=== PATIENT | male | born 1955 | race Caucasian/White ===

== ENCOUNTER 2024-05-22 09:25 | Outpatient (CLI) | payer MEDICARE, OTHER, SELFPAY ==
--- NOTE | 2024-05-22 11:02 | ECG_ITS ---
Test Date: 2024-05-22 11:12:43 Measurements Intervals [place] Rate: 61 P: 32 IA: 188 QRS: 60 QRSD: 88 T: 56 QT: 405 QTc: 410 Interpretive Statements SINUS RHYTHM INCOMPLETE RIGHT BUNDLE BRANCH BLOCK BASELINE ARTIFACT- I, II, III, AVR, AVL, AVF, V3 BORDERLINE ECG No previous ECG available for comparison Electronically Signed On 05-22-2024 12:04:28 CDT by Bruce Siu D.O.
[2024-05-22 11:47] LABS: INR 0.9; Prothrombin Time 12.5 Seconds (11.1-14.7)
[2024-05-22 11:48] LABS: Partial Thromboplastin Time 31.5 Seconds (22.3-36.8)
[2024-05-22 12:04] LABS: Anion Gap 12 mmol/L (4-12); Blood Urea Nitrogen 30 mg/dL (9-20); Calcium 9.5 mg/dL (8.4-10.2); Carbon Dioxide 26 mmol/L (22-30); Chloride 101 mmol/L (98-107); Estimated Glomerular Filt Rate > 60; Glucose 108 mg/dL (65-110); Potassium 4.6 mmol/L (3.4-5.0); Sodium 139 mmol/L (137-145)
[2024-05-22 12:45] LABS: Hemoglobin A1C 5.6 % (<5.7)
== END 2024-05-22 09:26 | disposition home or self-care (01) ==
PROVIDERS: Anesthesiology; Visit Provider Urology
DX: E78.00 Pure hypercholesterolemia, unspecified (principal); N52.9 Male erectile dysfunction, unspecified; E11.9 Type 2 diabetes mellitus without complications; N18.9 Chronic kidney disease, unspecified; Z01.818 Encounter for other preprocedural examination
CPT/HCPCS: 36415; 80048; 83036; 85610; 85730; 87086; 93005

== ENCOUNTER 2024-06-13 01:55 | Day surgery (SDC) | payer MEDICARE, OTHER, SELFPAY ==
[2024-05-22 10:24] VITALS: BP 107/63; PULSE 61; RESP 16; TEMP 36.2; O2SAT 100; BMI 22.0
--- NOTE | 2024-05-22 10:43 | PC.NURSE ---
Report to the Outpatient Waiting Room, entrance under the green pavilion located off [facility], at time _9:30AM__ on date _06/13/24__. Planned Procedure Time: _11:30AM .? Time changes happen often and if your time is changed the preop area will call you the afternoon before. - You and your visitor will be asked to self-screen and do not enter if you have any COVID symptoms. Please call surgeon if you need to reschedule. - A mask is optional within the hospital at this time. Patients may have clear liquids (water, carbonated beverages, clear teas, apple juice) until 3 hours prior to surgery with a maximum of 20 ounces. - No food from midnight until time of surgery and no smoking. Take only the following medications with a SIP of water on the morning of surgery: ___PREGABALIN & TRESIBA 5 UNITS. MAY USE ALBUTEROL INHALER NEEDED. DO NOT STOP ANY OF YOUR OTHER PRESCRIPTION MEDICATIONS PRIOR TO SURGERY EXCEPT THE FOLLOWING Medications to discontinue per physician __HOLD ALL VITAMINS/SUPPLEMENTS 3 DAYS PRE-OP PER ANESTHESIA Date to take last dose 06/09/24 Please no make-up, nail danish, hairspray, perfume, deodorant, or body powder the day of surgery.? No jewelry (including any body piercings) or valuables the day of surgery, leave them at home.? Please take a shower or bath the night before, or the morning of, surgery with an antibacterial soap.? Wear comfortable, loose fitting clothing.? - Jewelry must be removed prior to entering the operating room.? Rings and piercings that are not removed may be cut off. - The hospital will not accept responsibility for valuables.? - Please leave all valuables, including medications, at home the day of surgery. If you are going home after surgery, a licensed parts driver must drive you home.? - NO public transportation without another adult if you receive anesthesia. - We recommend that an adult stay with you for 24 hours following discharge. - We also recommend that you do not drive, make important decision, drink alcoholic beverages, or take any drugs that were not prescribed by your health care provider for at least 24 hours after your discharge time. Follow any additional instructions given to you from your surgeon. Telephone instructions given to ____PATIENT and asked if any additional questions and then verbalized understanding. Patient advised to call surgeon office or pre surgery nurse liaison [phone] if any additional questions.
[2024-06-13] VITALS (9 sets, daily range): BP systolic 110–157; BP diastolic 59–81; PULSE 65–92; RESP 10–20; TEMP 36.1–37.3; O2SAT 94–100; BMI 22.0
[2024-06-13 09:35] LABS: Glucose Point of Care 84 mg/dl (65-105)
[2024-06-13] MEDS: GENTAMICIN SULFATE INJ 370 MG in DEXTROSE 5% 100 ML 100 MG IVPB (10:00)
[2024-06-13] MEDS: VANCOMYCIN 1,250 MG/NS 250 ML BAG 166.67 MG IVPB (10:00)
[2024-06-13] MEDS: LACTATED RINGERS 1,000 ML 30 ML IV CONT ×2 (10:00→16:48)
--- NOTE | 2024-06-13 11:31 | WPDANESEPPF ---
Anes - Initial Pre Proc Eval Procedure: Operation Date: 06/13/24 11:30 Proposed Procedures p Insertion Inflatable Penile Prosthesis - Don Miner MD Date/Time: 06/13/24 11:31 Surgeon: Don Miner MD Pre Op Diagnosis: ED Patient Data Age: 69 Gender: M Height: 1.83 m Weight: 73.7 kg Last Vital Signs Temp 97.5 F L 06/13/24 09:20 Pulse 65 06/13/24 09:20 Resp 16 06/13/24 09:20 BP 110/59 L 06/13/24 09:20 Pulse Ox 100 06/13/24 09:20 O2 Del Method Room Air 06/13/24 09:20 Allergies Allergy/AdvReac Type Severity Reaction Status Date / Time No Known Allergies Allergy Verified 06/13/24 09:22 Home Medications Medication Instructions Recorded Confirmed Type albuterol sulfate 90 mcg/actuation 1 puff inhalation Q4-8H PRN 05/22/24 05/22/24 History aerosol inhaler Shortness Of Breath Or Wheezing atorvastatin 10 mg tablet 10 mg PO EVERY OTHER DAY 05/22/24 05/22/24 History dapagliflozin propanediol 5 mg 5 mg PO QAM 05/22/24 05/22/24 History tablet (Farxiga) insulin degludec 200 unit/mL (3 10 unit subcut QAM 05/22/24 05/22/24 History mL) subcutaneous pen (Tresiba FlexTouch U-200 insulin) lactobacillus combination no.8 3 3 cell PO DAILY 05/22/24 05/22/24 History billion cell capsule losartan 25 mg tablet 25 mg PO QAM 05/22/24 05/22/24 History metformin 750 mg tablet,extended 750 mg PO BID 05/22/24 05/22/24 History release 24 hr multivitamin 1 tablet PO DAILY 05/22/24 05/22/24 History pantoprazole 40 mg tablet,delayed 40 mg PO EVERY OTHER DAY 05/22/24 05/22/24 History release patiromer calcium sorbitex 8.4 8.4 g PO DAILY 05/22/24 05/22/24 History gram oral powder packet (Veltassa) pregabalin 150 mg capsule See Rx Instructions .Route .COMPLEX 05/22/24 05/22/24 History tirzepatide 15 mg/0.5 mL 15 mg subcut WEEKLY 05/22/24 05/22/24 History subcutaneous pen injector (Mounjaro) vibegron 75 mg tablet (Gemtesa) 75 mg PO QAM 05/22/24 05/22/24 History levofloxacin 500 mg tablet 500 mg PO DAILY 06/13/24 06/13/24 History Laboratory Tests 06/13/24 09:32 POC Capillary Glucose 84 mg/dl (65-105) Patient hx anesthesia problems: none Family hx anesthesia problems: none Results Review: All pre-operative results and documents have been reviewed as part of the pre-operative evaluation. [facility] Social History Social History Smoking packs per day: 3 Smoking cigarettes per day: 60.0 Years smoked: 26 Smoking pack-years: 78.00 Smoking status: Former smoker Tobacco type: cigarettes Smoking end date: 03/19/01 Alcohol intake: current Alcohol use details: FORMER HEAVY DRINKER, QUIT 2000 Living arrangements: with family Additional living arrangements comments: Spiritual care concerns: No Anes - Eval Final PreProcedure Day of Procedure 06/13/24 11:31 Patient weight: normal Heart: regular rate and rhythm Lungs: clear to auscultation Airway: Mallampati scale class II Neurological: alert and oriented Last oral intake: >/= 8 hours ASA classification: III Emergent: no Anesthetic plan: proceed Anesthesia type and monitoring: general LMA and standard monitoring Results Review: All pre-operative results and documents have been reviewed as part of the pre-operative evaluation. Informed Consent: The patient's anesthetic plan and its attendant risks and benefits were discussed with the patient/family/POA. Questions were solicited and answers provided to the satisfaction of the patient/family/POA.
--- NOTE | 2024-06-13 12:14 | WPDHPUPDATE1 ---
History and Physical Update Update Date/Time: 06/13/24 12:14 History and Physical has been reviewed, including an updated exam of the patient. There are NO changes in the patient's condition. Risks, benefits, and alternatives have been discussed and questions answered. Patient agrees to proceed with procedure.
[2024-06-13] MEDS: BUPivacaine HCL 0.25% PF 30 ML VIAL INFILTRATE (13:40)
[2024-06-13] MEDS: ceFAZolin SODIUM 1 GM VIAL (13:40)
[2024-06-13] MEDS: LIDOCAINE HCL 1% LOCAL INJ 20 ML VIAL INFILTRATE (13:41)
--- NOTE | 2024-06-13 16:46 | W.PM.PROC2 ---
Procedure Note - Detailed Date of Procedure 06/13/24 Pre-op Diagnosis Postprostatectomy erectile dysfunction Post-op Diagnosis Other (Postprostatectomy erectile dysfunction, Peyronie's disease with corporal fibrosis) Procedure Performed 1. Insertion of 3-piece inflatable penile prosthesis. 2. Artificial erection using pharmacological agent. 3. Correction of Peyronie's disease with penile modeling 4. Scrotoplasty Surgeon Don Miner MD Anesthesia General Description of Procedure DESCRIPTION OF OPERATION Informed consent obtained, patient taken to the operating room and given preoperative IV antibiotics with vancomycin and gentamicin. Additionally the patient has been taking oral levofloxacin and done a 3-day wash with Hibiclens. The patient was shaved. He was then prepped with Betadine scrub and paint followed by ChloraPrep. Sterile drapes were placed. We again prepped with ChloraPrep. A 16-[place] Karimi catheter was inserted with return of clear urine. We then performed a pharmacologically induced erection with dilute lidocaine. There was minimal curvature noted. We then made a penoscrotal 3 cm longitudinal incision excising excess skin at the penoscrotal junction. We dissected bluntly down to identify the corporal bodies taking great care not to injure the urethra. Stay sutures of 2-0 PDS were placed in the corporal body. We sharply opened the corpora. We then serially dilated up to a 12 Unger dilator. There was significant corporal fibrosis noted however we were able to dilate with Metzenbaum scissors held to make a nice tract into the mid gland. We then measured the corpora. Measurements were 8 cm proximally and 8 cm distally. We irrigated and there was no injury. We then performed an identical procedure on the contralateral side, again with distal corporal fibrosis. Measurements were 8 cm proximal, 8 cm distal. Dilators were placed into the corpora bilaterally confirming that there was no crossover. We elected to place an AMS LGX device 15 cm + 1cm of rear tip extenders. Despite being able to dilate up to 12, there was significant difficulty in placing the implant into the corpora. We were able to seat the device into the corpora and with inflation noted significant curvature of [id number]? ventrally and 40? to the left. The device was removed dilation was again performed and significant curvature remained. Given the significant fibrosis and smaller corporal bodies, we elected to exchange to a narrow based device. All we therefore removed the device and then replaced an AMS CXR device 14cm +1.5cm rear-tip hr receptionist. This device sat in a much better location. Inflation at this point revealed [id number] dorsal and 30degree left curvature. We then placed rubber shod on the tubing and performed penile modeling. Modeling for 90seconds x 2 allowed for significant improvement of curvature. There did appear to be room to fill the glans, we therefore exchanged to a 2cm rear tip with better positioning. At this point the device sat in a much better location, there was minimal residual curvature with [id number]? of curvature in any direction. We felt this was an excellent cosmetic result given his fibrosis and narrow corpora. We again irrigated the corporal bodies. We then closed the pre-placed 2-0 PDS sutures. We again inflated using the surrogate reservoir again with a very good cosmetic result. Final implant was AMS CXR device 14cm +2cm rear-tip hr receptionist. We then made a right lower quadrant incision for approximately 2 cm. We bluntly dissected down to the external oblique fascia. The fascia was opened. We then the rectus muscle and created a space superiorly in the sub rectus. We emptied the bladder prior to our incision. We then irrigated copiously. We pre-placed 0 Vicryl sutures. We placed the reservoir in the sub rectus space. We fill it with 100 mL and there was no back pressure. We then left 80mL in the reservoir. Our pre-pl
[2024-06-13 16:57] LABS: Glucose Point of Care 84 mg/dl (65-105)
[2024-06-13] MEDS: fentaNYL CITRATE INJ (*CRX) 100 MCG/2 ML VIAL 25 MCG IV PUSH ×2 (17:12→17:15)
--- NOTE | 2024-06-13 18:00 | PC.NURSE ---
This patient, Saul Sosa, was admitted to -. Patient/family oriented to hospital policies and general routines including ID bracelet, bed and alarms, visiting hours, pain management, procedures, bathroom and other care routines, personal items, smoking policy, room service/diet, and visiting hours. Information on how to activate the Rapid Response Team has been discussed. Patient/Family are encouraged to report perceived risks to care and to ask questions if they do not understand what they are told or what they should do.
[2024-06-13] MEDS: DOCUSATE SODIUM 100 MG CAPSULE PO (18:31)
[2024-06-13] MEDS: HYDROcodone/acetaminophen (*CRX) 5-325 MG TABLET 1 TAB PO ×2 (18:34→22:40)
[2024-06-13] MEDS: VANCOMYCIN 1,000 MG/NS 250 ML 1,000 MG/250 ML BAG 250 MG IVPB (21:33)
[2024-06-14 01:40] VITALS: BP 111/54; PULSE 70; RESP 20; TEMP 36.1; O2SAT 99
[2024-06-14 03:25] LABS: Glucose Point of Care 119 mg/dl (65-105)
[2024-06-14 05:00] VITALS: BP 108/53; PULSE 54; RESP 20; TEMP 36.1; O2SAT 99
[2024-06-14] MEDS: HYDROcodone/acetaminophen (*CRX) 5-325 MG TABLET 1 TAB PO ×2 (06:17→11:18)
[2024-06-14 06:25] LABS: Hematocrit 44.1 % (42.0-52.0); Hemoglobin 14.1 g/dL (14.0-18.0)
[2024-06-14 06:40] LABS: Anion Gap 4 mmol/L (4-12); Blood Urea Nitrogen 21 mg/dL (9-20); Calcium 8.6 mg/dL (8.4-10.2); Carbon Dioxide 30 mmol/L (22-30); Chloride 103 mmol/L (98-107); Estimated CRCL calculation 81 ml/min; Estimated Glomerular Filt Rate > 60; Glucose 97 mg/dL (65-110); Potassium 4.5 mmol/L (3.4-5.0); Sodium 137 mmol/L (137-145)
[2024-06-14 08:22] VITALS: O2SAT 99
[2024-06-14 08:52] VITALS: BP 118/60; PULSE 58; RESP 16; TEMP 36.6; O2SAT 99
[2024-06-14 08:58] LABS: Glucose Point of Care 113 mg/dl (65-105)
[2024-06-14] MEDS: PANTOPRAZOLE 40 MG TABLET PO (09:38)
[2024-06-14] MEDS: ATORVASTATIN 10 MG TABLET PO (09:38)
[2024-06-14] MEDS: MULTIVITAMINS THERAPEUTIC TAB (*BKC) 1 TABLET PO (09:38)
[2024-06-14] MEDS: DOCUSATE SODIUM 100 MG CAPSULE PO (09:38)
[2024-06-14] MEDS: LOSARTAN POTASSIUM 25 MG TABLET PO (09:38)
[2024-06-14] MEDS: VANCOMYCIN 1,000 MG/NS 250 ML 1,000 MG/250 ML BAG 250 MG IVPB (09:39)
--- NOTE | 2024-06-14 09:42 | WPDUROPN2 ---
Progress Note: A&P Assessment and Plan (1) Erectile dysfunction: Code(s): N52.9 - Male erectile dysfunction, unspecified Status: Acute Assessment and Plan: S/p insertion of 3 piece inflatable penile prosthesis, artificial erection using pharmacologic agent, correction of peroneus with penile modeling, and scrotoplasty by Dr. Miner on 06/13/2024. He tolerated this procedure well. Penile dressing removed today and Karimi catheter was removed. Plan for discharge home later today once patient is able to void. Will continue with short course of analgesics at home as well as course of Bactrim and Colace (medications sent to pharmacy via outpatient EMR). Written postoperative instructions provided. He has follow-up scheduled with Dr. Miner on 06/27/2024. (2) Peyronie's disease: Code(s): N48.6 - Induration penis plastica Status: Acute Assessment and Plan: See above Subjective Subjective Date/Time Seen: 06/14/24 09:42 Interval history: Saul is doing very well today. He tolerated procedure yesterday without difficulty. He has some soreness of his abdomen and pelvis but has overall been doing well. Has been out of bed and ambulating. Tolerating diet. Denies nausea, vomiting, fever, or chills. Reports no issues with Karimi catheter. Review of Systems Review of Systems: All systems reviewed & are unremarkable except as noted in HPI and below Exam Narrative: General: Awake, alert, comfortable, no acute distress HEENT: Normocephalic, atraumatic, sclerae anicteric Respiratory: Normal respiratory effort, no accessory muscle use Abdomen: Nondistended, soft, nontender : Penile dressing removed, surgical incisions are clean, dry, intact, covered with Dermabond, no significant swelling or bruising Skin: Normal coloration, warm and dry Neurologic: No focal neuro deficits noted Psychiatric: Appropriate mood and affect, judgment and insight intact Objective Data Vital Signs Vital Signs: Vital Signs - 24 hr 06/13/24 16:48 06/13/24 17:00 06/13/24 17:15 Temperature 99.1 F Pulse Rate 92 82 84 Respiratory Rate 10 L 12 14 Blood Pressure 143/78 H 146/78 H 132/76 Pulse Oximetry 98 99 100 Oxygen Delivery Simple Face Mask Simple Face Mask Nasal Cannula Oxygen Flow Rate 8 8 2 06/13/24 17:30 06/13/24 17:38 06/13/24 18:10 Temperature 98 F 97.9 F Pulse Rate 85 82 79 Respiratory Rate 12 12 18 Blood Pressure 157/69 H 144/81 H 132/71 Pulse Oximetry 100 99 94 Oxygen Delivery Nasal Cannula Nasal Cannula Oxygen Flow Rate 2 1 06/13/24 18:27 06/13/24 21:32 06/14/24 01:40 Temperature 97.8 F 97.0 F L 97.0 F L Pulse Rate 85 76 70 Respiratory Rate 18 20 20 Blood Pressure 147/76 H 110/74 111/54 L Pulse Oximetry 95 100 99 Oxygen Delivery Oxygen Flow Rate 06/14/24 05:00 06/14/24 08:52 Temperature 97.0 F L 97.9 F Pulse Rate 54 L 58 L Respiratory Rate 20 16 Blood Pressure 108/53 L 118/60 Pulse Oximetry 99 99 Oxygen Delivery Oxygen Flow Rate Intake/Output Intake/Output: Intake & Output 06/11/24 06/12/24 06/13/24 06/14/24 23:59 23:59 23:59 23:59 Intake Total 759.25 700 Output Total 500 1000 Balance 259.25 -300 Meds/Results Medications: Active Medications Generic Name Dose Route Start Last Admin Trade Name Freq PRN Reason Stop Dose Admin Hydrocodone Bitart/Acetaminophen 1 tab 06/13/24 17:42 06/14/24 06:17 Hydrocodone/Acetaminophen (*Crx) 5-325 Mg Tablet PO 1 tab Q4H PRN Administration Pain Rated 1-6 Albuterol 1 puff 06/13/24 17:42 Albuterol Sulfate (*Sp) Aerosol 1 Puff INHALATION Q4H PRN Shortness Of Breath Or Wheezin Atorvastatin Calcium 10 mg 06/14/24 09:00 06/14/24 09:38 Atorvastatin 10 Mg Tablet PO 10 mg Q48H GUDELIA Administration Dextrose 12.5 gm 06/13/24 16:41 Dextrose 50% 25 Gm/50 Ml Syringe IV PUSH PRN PRN Hypoglycemia Protocol Docusate Sodium 100 mg
[2024-06-14 12:41] LABS: Glucose Point of Care 145 mg/dl (65-105)
== END 2024-06-14 13:03 | disposition home or self-care (01) ==
LOC: ANHSURGERY 09:05 → ANH3MED 19:24
PROVIDERS: Visit Provider Urology
PROC: (CPT 54405; principal; 2024-06-13 11:30)
DX: N52.31 Erectile dysfunction following radical prostatectomy (principal); N48.6 Induration penis plastica; N39.3 Stress incontinence (female) (male); E11.9 Type 2 diabetes mellitus without complications; Z79.51 Long term (current) use of inhaled steroids; Z79.84 Long term (current) use of oral hypoglycemic drugs; Z79.4 Long term (current) use of insulin; Z79.85 Long-term (current) use of injectable non-insulin antidiabetic drugs; Z87.891 Personal history of nicotine dependence; Z85.46 Personal history of malignant neoplasm of prostate
CPT/HCPCS: 54405; 54235; 55175; 54360; 36415; 80048; 82948; 85014; 85018; A9270; C1813; J0690; J1100; J1170; J1580; J2250; J2405; J2704; J3010; J3370; J7030; J7120